=== PATIENT | female | born 1950 | race Caucasian/White ===

== ENCOUNTER → 2016-08-01 | Outpatient (CLI) | payer BC ==
[~2016-08-01] MED LIST: BIOTPOW17 PO; CALCTAB7 PO; FLNIN NAE; IMIP50TA PO; MULTTAB58 PO; SIMV20TA2 PO
== END | disposition home or self-care (01) ==
LOC: C.PAPS 14:46
PROVIDERS: ATTEND Obstetrics & Gynecology
DX: Z01.419 Encounter for gynecological examination (general) (routine) without abnormal findings (principal)

== ENCOUNTER → 2017-01-26 | Outpatient (CLI) | payer BC ==
--- NOTE | 2017-01-26 14:04 | MAMMOGRAPHY REPORT ---
BILATERAL DIGITAL SCREENING MAMMOGRAM WITH CAD: 01/26/2017 CLINICAL HISTORY: Routine screening. Patient has no complaints. TECHNIQUE: Current study was also evaluated with a Computer Aided Detection (CAD) system. Bilateral CC and MLO views were obtained. COMPARISON: Comparison is made to exams dated: 12/18/2015 mammogram, 12/16/2014 mammogram, 12/13/2013 ma mmogram, 12/06/2012 mammogram, 12/06/2011 mammogram, and 12/03/2010 mammogram - [facility] nter. BREAST COMPOSITION: The tissue of both breasts is almost entirely fatty. FINDINGS: No suspicious masses, calcifications, or areas of architectural distortion are noted in ei ther breast. There has been no significant interval change compared to prior exams. Scattered bilater al benign-appearing calcifications are not significantly changed. IMPRESSION: ACR BI-RADS CATEGORY 2: BENIGN There is no mammographic evidence of malignancy. A 1 year screening mammogram is recommended. The pa tient will receive written notification of the results. Approximately 10% of breast cancers are not detected with mammography. A negative mammographic report should not delay biopsy if a clinically suggestive mass is present. Mariaa Gross M.D. /:01/26/2017 07:50:55 Newspaper Writer: Dorinda Weiner, [facility] letter sent: Normal 1/2 BI-RADS Code: ACR BI-RADS Category 2: Benign
== END | disposition home or self-care (01) ==
LOC: C.MAMM 07:30
PROVIDERS: ATTEND Obstetrics & Gynecology
DX: Z12.31 Encounter for screening mammogram for malignant neoplasm of breast (principal)

== ENCOUNTER → 2017-02-10 | Outpatient (CLI) | payer BC ==
[2017-02-10 10:10] LABS: ALT/SGPT 32 U/L (12-78); AST/SGOT 16 U/L (15-37); BLOOD UREA NITROGEN 16 mg/dl (7-18); BUN/CREATININE RATIO 18.9 (10-20); CALCIUM 8.7 mg/dl (8.5-10.1); CARBON DIOXIDE 28 mmol/L (21-32); CHLORIDE 105 mmol/L (98-107); CREATININE 0.85 mg/dl (0.60-1.20); GLUCOSE 82 mg/dl (70-99); POTASSIUM 4.3 mmol/L (3.5-5.1); SODIUM 140 mmol/L (136-145)
[2017-02-10 10:21] LABS: CHOLESTEROL 198 mg/dl (0-200); CHOLESTEROL/HDL RATIO 2.7; HDL CHOLESTEROL 73 mg/dl; LDL CHOLESTEROL CALCULATED 105 mg/dl; TRIGLYCERIDES 100 mg/dl (0-150); VERY LOW DENSITY LIPOPROT CALC 20 mg/dl
== END | disposition home or self-care (01) ==
LOC: C.LAB1850 07:56
PROVIDERS: ATTEND Internal Medicine
DX: M81.0 Age-related osteoporosis without current pathological fracture (principal); E78.5 Hyperlipidemia, unspecified; E03.9 Hypothyroidism, unspecified; Z00.00 Encounter for general adult medical examination without abnormal findings

== ENCOUNTER → 2017-03-06 | Outpatient (CLI) | payer BC ==
--- NOTE | 2017-03-06 12:29 | DIAGNOSTIC IMAGING REPORT ---
RIBS UNILATERAL WITH PA CHEST CLINICAL HISTORY: R07.81 Rib pain on right [id number] trauma. Pain. COMPARISON STUDY: None FINDINGS: Negative chest. Negative right ribs. IMPRESSION: Negative study The above report was generated using voice recognition software. It may contain grammatical, syntax or spelling errors. Electronically signed by: Hussain Molina M.D. 03/06/2017 12:27 PM Dictated Date/Time: 03/06/2017 12:27 PM
== END | disposition home or self-care (01) ==
LOC: C.RAD1850 12:00
PROVIDERS: ATTEND Nurse Practitioner Adult Health
DX: R07.81 Pleurodynia (principal)

== ENCOUNTER → 2017-07-11 | Outpatient (CLI) | payer BC ==
[2017-07-11 09:32] LABS: BASO % 1.2 %; BASO ABS # 0.07 K/uL (0-0.2); EOS % 3.1 %; EOS ABS # 0.18 K/uL (0-0.5); HEMATOCRIT 42.8 % (37-47); HEMOGLOBIN 14.2 g/dL (12.0-16.0); IG# 0.01 K/uL (0.00-0.02); LYMPH % 26.6 %; LYMPH ABS # 1.53 K/uL (1.2-3.4); MEAN CORPUSCULAR HEMOGLOBIN 30.5 pg (25-34); MEAN CORPUSCULAR HGB CONC 33.2 g/dl (32-36); MEAN PLATELET VOLUME 9.9 fL (7.4-10.4); MONO % 12.2 %; NEUT % 56.7 %; NEUT ABS # 3.26 K/uL (1.4-6.5); PLATELET COUNT 304 K/uL (130-400); RED CELL DISTRIBUTION WIDTH CV 13.4 % (11.5-14.5); RED CELL DISTRIBUTION WIDTH SD 44.7 fL (36.4-46.3); WHITE BLOOD COUNT 5.75 K/uL (4.8-10.8)
== END | disposition home or self-care (01) ==
LOC: C.LAB1850 08:03
PROVIDERS: ATTEND Internal Medicine
DX: E78.5 Hyperlipidemia, unspecified (principal); E03.9 Hypothyroidism, unspecified

== ENCOUNTER → 2017-10-23 | Outpatient (CLI) | payer BC | END | disposition home or self-care (01) | LOC: C.PAPS 11:43 | PROVIDERS: ATTEND Obstetrics & Gynecology ==

== ENCOUNTER → 2018-01-18 | Outpatient (CLI) | payer BC | END | disposition home or self-care (01) | LOC: C.MAMM 07:59 | PROVIDERS: ATTEND Internal Medicine | DX: M85.88 Other specified disorders of bone density and structure, other site (principal); M85.851 Other specified disorders of bone density and structure, right thigh ==

== ENCOUNTER → 2018-02-02 | Outpatient (CLI) | payer BC ==
--- NOTE | 2018-02-02 15:40 | MAMMOGRAPHY REPORT ---
BILATERAL DIGITAL SCREENING MAMMOGRAM TOMOSYNTHESIS WITH CAD: 02/02/2018 CLINICAL HISTORY: Routine screening. Patient has no complaints. TECHNIQUE: The study was acquired using full field digital technology and interpreted from soft copy. Breast tomosynthesis in addition to standard 2D mammography was performed. Current study was also ev aluated with a Computer Aided Detection (CAD) system. COMPARISON: Comparison is made to exams dated: 01/26/2017 mammogram, 12/18/2015 mammogram, 12/16/2014 ma mmogram, 12/13/2013 mammogram, 12/06/2012 mammogram, and 12/06/2011 mammogram - [facility] nter. BREAST COMPOSITION: The tissue of both breasts is almost entirely fatty. FINDINGS: No suspicious masses, calcifications, or areas of architectural distortion are noted in either breast . There has been no significant interval change compared to prior exams. Scattered bilateral benign-a ppearing calcifications are not significantly changed. IMPRESSION: ACR BI-RADS CATEGORY 2: BENIGN There is no mammographic evidence of malignancy. A 1 year screening mammogram is recommended.( 019) The patient will receive written notification of the results. Some breast cancers are not detected with mammography. A negative mammographic report should not annie y biopsy if a clinically suggestive mass is present. Mariaa Gross M.D. ah/:02/02/2018 07:55:18 Ironing Machine Operator: Deepthi Alanis RT(R)(M), [facility] letter sent: Normal 1/2 BI-RADS Code: ACR BI-RADS Category 2: Benign
== END | disposition home or self-care (01) ==
LOC: C.MAMM 07:38
PROVIDERS: ATTEND Internal Medicine
DX: Z12.31 Encounter for screening mammogram for malignant neoplasm of breast (principal)

== ENCOUNTER 2023-05-01 08:20 | Observation (INO) ==
--- NOTE | 2023-03-29 10:59 | PAT Medication Instructions ---
Medication Instructions Date of Service March 29, 2023 Home Medications Medication Instructions Recorded fluticasone propionate 50 1 - 2 spray intranasal DAILY PRN 12/26/ mcg/actuation nasal nasal congestion #48 grams spray,suspension biotin 5,000 mcg sublingual tablet 5,000 mcg sublingual QAM calcium carbonate 500 mg-vitamin D3 10 mcg (400 unit) tablet (Calcium 500 + D) 2 tab PO QAM multivitamin 1 tab PO QAM cholecalciferol (vitamin D3) 25 mcg (1,000 unit) capsule 1,000 units PO QAM fluticasone propionate 50 mcg/actuation nasal spray,suspension 1 - 2 spray intranasal DAILY PRN nasal congestion escitalopram oxalate 20 mg tablet 20 mg PO HS levothyroxine 50 mcg tablet (Synthroid) 50 mcg PO QAM mupirocin 2 % topical ointment 1 applic topical DAILY PRN Skin Irritation rosuvastatin 10 mg tablet (Crestor) 10 mg PO HS STOP taking 2 weeks before surgery biotin 5,000 mcg sublingual tablet 5,000 mcg sublingual QAM STOP taking 24 hours before surgery mupirocin 2 % topical ointment 1 applic topical DAILY PRN Skin Irritation DO NOT take the morning of surgery calcium carbonate 500 mg-vitamin D3 10 mcg (400 unit) tablet (Calcium 500 + D) 2 tab PO QAM multivitamin 1 tab PO QAM cholecalciferol (vitamin D3) 25 mcg (1,000 unit) capsule 1,000 units PO QAM Take morning of surgery With a small sip of water, OTHERWISE NOTHING TO EAT OR DRINK AFTER MIDNIGHT: fluticasone propionate 50 mcg/actuation nasal spray,suspension 1 - 2 spray intranasal DAILY PRN nasal congestion (if needed) levothyroxine 50 mcg tablet (Synthroid) 50 mcg PO QAM Take evening before surgery fluticasone propionate 50 mcg/actuation nasal spray,suspension 1 - 2 spray intranasal DAILY PRN nasal congestion (if needed) escitalopram oxalate 20 mg tablet 20 mg PO HS rosuvastatin 10 mg tablet (Crestor) 10 mg PO HS Other Notes If you have any questions please call us at [phone] or [phone] or [phone] or [phone]
--- NOTE | 2023-04-03 09:01 | Anesthesiology Consultation ---
Date of Service April 03, 2023 Assessment & Plan (1) Encounter for pre-operative examination: - will await upcoming [place] PCP 04/24/23 appointment. Chart Review Chart Review: Pending: Refer to Additional Notes / Consult section and Patient seen in Pre Admission Testing Teaching & Discussion Pre-Anesthesia Teaching/Discussion Notes: Instructed NPO after midnight before surgery, except medications with 15 cc of water. Medication instructions provided according to the PAT guidelines. History Surgery Operation Date: 05/01/23 08:10 Proposed Procedures p Left Total Knee Arthroplasty - Osmany Bettencourt DO Height/Weight Height: 5 ft 9 in Weight: 109.8 kg Allergies Allergy/AdvReac Type Severity Reaction Status Date / Time No Known Allergies Allergy Verified 03/27/23 07:32 Medications Home Medications Medication Instructions Recorded Confirmed Last Taken biotin 5,000 mcg sublingual tablet 5,000 mcg sublingual QAM 01/21/19 03/27/23 01/21/19 calcium carbonate 500 mg-vitamin 2 tab PO QAM 01/21/19 03/27/23 01/21/19 D3 10 mcg (400 unit) tablet (Calcium 500 + D) multivitamin 1 tab PO QAM 01/21/19 03/27/23 01/21/19 cholecalciferol (vitamin D3) 25 1,000 units PO QAM 01/22/19 03/27/23 Unknown mcg (1,000 unit) capsule fluticasone propionate 50 1 - 2 spray intranasal DAILY PRN 12/26/22 03/27/23 Unknown mcg/actuation nasal nasal congestion #48 grams spray,suspension escitalopram oxalate 20 mg tablet 20 mg PO HS 03/27/23 03/27/23 Unknown levothyroxine 50 mcg tablet 50 mcg PO QAM 03/27/23 03/27/23 Unknown (Synthroid) mupirocin 2 % topical ointment 1 applic topical DAILY PRN Skin 03/27/23 03/27/23 Unknown Irritation rosuvastatin 10 mg tablet (Crestor) 10 mg PO HS 03/27/23 03/27/23 Unknown famotidine 10 mg tablet 10 mg PO DAILY PRN Acid Reflux 04/03/23 04/03/23 Unknown ibuprofen 200 mg tablet 200 mg PO Q6H PRN Pain 04/03/23 04/03/23 Unknown Additional Notes: Patient was advised and it was written on provided medication instruction paper that ibuprofen instructions are to surgeon's office, patient states she will check with their office. She was instructed to continue prn famotidine, this was also written on provided medication instructions. She denied questions, concerns or additional medications. Past Medical History Medical History (Updated 04/03/23 @ 09:10 by Debora English PA-C) Depression with anxiety Dyslipidemia GERD (gastroesophageal reflux disease) controlled with famotidine and diet Hx of migraines none since menopause Hypothyroidism Sleep apnea CPAP-compliant Patient denies h/o stroke, seizures, heart attack, heart failure, DM, HTN, PEs/DVTs or blood transfusions. Exercise / Class Metabolic Activity III < 4 Walking/Shop/Light housework (denies chest discomfort or shortness of breath with usual activities) Past Family History Family History Father Dementia Congestive heart failure Other Diabetes Heart disease Denies family history of Colon cancer Ovarian cancer Prostate cancer Myocardial infarction Breast cancer Colorectal cancer Past Surgical History Surgical History H/O ligation of vein H/O oral surgery Hx of colonoscopy S/P hernia repair S/P tonsillectomy and adenoidectomy Past Anesthesia History No Hx of Anesthesia Complications and Other (mother with PONV) History of PONV No Hx of PONV and No Hx of Motion Sickness (only on boat) Social History Smoking Status: Never smoker Do You Dip or Chew Tobacco: No Hx Alcohol Use: Yes Alcohol type: hard liquor alcohol intake frequency: a few times a week Hx Substance Use: No substance use type: does not use Review of Systems Patient denies chest pain, shortness of breath, dyspnea on exertion, fever, chills, cough, wheezing, or palpitations. Physical Exam Vital Signs Vitals BP 143/84 P 64 TEMP 98.2 SP02 96% on RA RESP 18 Physical Patient resting comfortably in chair in no acute distress, alert and oriented, responding appropriately throughout visit Full cervical extension range of motion without pain TMD 3.5 finger breadths Mallampati Score 2 Dentition: several crowns, denies chipped or loose teeth, implants or bridges Lungs: normal respiratory effort. Good air movement, clear throughout to auscultation, no adventitious breath sounds Cardiac: regular rate and rhythm, no murmurs noted Carotid arteries: negative bruit bilat Lab Results Anesthesia Preop Results Results Anesthesia Widget: WBC 4.98 K/ul (4.8-10.8) 04/03/23 Hgb 13.6 g/dl (12.0-16.0) 04/03/23 Hct 41.7 % (37.0-47.0) 04/03/23 Plt 295 K/uL (130-400) 04/03/23 Na 139 mmol/L (136-145) 04/03/23 K 4.2 mmol/L (3.5-5.1) 04/03/23 Cl 105 mmol/L (98-107) 04/03/23 CO2 27 mmol/L (21-32) 04/03/23 BUN 15 mg/dl (6-23) 04/03/23 Creat 0.80 mg/dl (0.6-1.2) 04/03/23 Glucose Level 97 mg/dl (70-99(Fasting)) 04/03/23 PT 10.6 Seconds (9.0-12.0) 04/03/23 PTT 31.4 Seconds (21.0-31.0) H 04/03/23 INR 1.0 (0.9-1.1) 04/03/23 TSH 1.951 uIu/ml (0.300-4.500) 04/03/23 HA1c 5.5 % (4.5-5.6) 04/03/23 Blood Type A Positive 04/03/23 Antibody Screen NEGATIVE 04/03/23 Testing Electrocardiogram Date: 04/03/23 NSR, rate 61 bpm Chest X-Ray Date: 04/03/23 No acute cardiopulmonary findings Stress Test Date: 04/19/19 Negative exercise stress echo and ECG for ischemia at MPHR 110% METS 7 Premature supraventricular beats and runs of nonsustained supraventricular tachycardia in the early recovery phase EF 60% Mild cLVH Normal LV wall motion No significant valvular pathology
--- NOTE | 2023-04-27 06:22 | History & Physical Report ---
Date of Service April 27, 2023 History of Present Illness Chief Complaint: Osteoarthritis of the left knee. Primary Care Provider: Brandon Mcdaniels MD Sultana is a pleasant 72-year-old female who has been dealing with chronically increasing bilateral knee pain. Her left has been worse than her right. I tried injections. She tried exercise and physical therapy. She is trying anti- inflammatories without relief. Unfortunately, she is still really struggling with the knee. Her left is worse than her right. X-rays and clinical examination been diagnostic for advanced osteoarthritis of the left knee. After failed conservative treatment, she has elected to proceed with a left total knee arthroplasty. Allergies Allergy/AdvReac Type Severity Reaction Status Date / Time No Known Allergies Allergy Verified 04/21/23 09:21 Home Medications Medication Instructions Recorded Confirmed Type biotin 5,000 mcg sublingual tablet 5,000 mcg sublingual QAM 01/21/19 04/21/23 History calcium carbonate 500 mg-vitamin 2 tab PO QAM 01/21/19 04/21/23 History D3 10 mcg (400 unit) tablet (Calcium 500 + D) multivitamin 1 tab PO QAM 01/21/19 04/21/23 History cholecalciferol (vitamin D3) 25 1,000 units PO QAM 01/22/19 04/21/23 History mcg (1,000 unit) capsule fluticasone propionate 50 1 - 2 spray intranasal DAILY PRN 12/26/22 04/21/23 Rx mcg/actuation nasal nasal congestion #48 grams spray,suspension escitalopram oxalate 20 mg tablet 20 mg PO HS 03/27/23 04/21/23 History levothyroxine 50 mcg tablet 50 mcg PO QAM 03/27/23 04/21/23 History (Synthroid) mupirocin 2 % topical ointment 1 applic topical DAILY PRN Skin 03/27/23 04/21/23 History Irritation rosuvastatin 10 mg tablet (Crestor) 10 mg PO HS 03/27/23 04/21/23 History famotidine 10 mg tablet 10 mg PO DAILY PRN Acid Reflux 04/03/23 04/21/23 History ibuprofen 200 mg tablet 200 mg PO Q6H PRN Pain 04/03/23 04/21/23 History Past Med/Surg History Medical History (Updated 04/03/23 @ 09:10 by Debora English PA-C) GERD (gastroesophageal reflux disease) controlled with famotidine and diet Hx of migraines none since menopause Sleep apnea CPAP-compliant Depression with anxiety Dyslipidemia Hypothyroidism Surgical History Hx of colonoscopy H/O ligation of vein S/P tonsillectomy and adenoidectomy H/O oral surgery S/P hernia repair Family History Father Dementia Congestive heart failure Other Diabetes Heart disease Denies family history of Colon cancer Ovarian cancer Prostate cancer Myocardial infarction Breast cancer Colorectal cancer Social History Smoking Status: Never smoker Second Hand Exposure: Yes (hx in college); Do You Dip or Chew Tobacco: No; Hx Alcohol Use: Yes Alcohol type: hard liquor Hx Substance Use: No Preferred Language: Marshallese Communication Ability: Effective Visual Impairment: No Limitations Hearing Ability: Normal Clothing Designer Required: No Beliefs That Will Affect Care: None marital status: Current Living Situation: Significant Other current occupational status: employed Feels Safe at Home: Yes Seatbelt Use: always Assistive Devices: CPAP and Glasses Review of Systems All systems reviewed & are unremarkable except as noted in HPI & below. Physical Exam . Results & Data Results & Data Laboratory Results . Diagnostic Findings . PG Care Time/CCT Total # of Minutes Spent Total Time Spent with Patient: Total time spent is greater than 50% in coordination of care (as documented) at patient's floor/unit and/or counseling patient: Coding Level of Care Code None
--- NOTE | 2023-04-27 06:30 | History & Physical Report ---
Date of Service April 27, 2023 Assessment & Plan (1) Osteoarthritis of left knee: We will proceed with a left total knee arthroplasty. Postoperatively she will be started on aspirin for DVT prophylaxis and kept overnight in the hospital for postop medical management. She plans to use energy physical therapy upon discharge. History of Present Illness Chief Complaint: Osteoarthritis of the left knee. Primary Care Provider: Brandon Mcdaniels MD Sultana is a pleasant 72-year-old female who has been dealing with chronically increasing bilateral knee pain. Her left has been worse than her right. I tried injections. She tried exercise and physical therapy. She is trying anti- inflammatories without relief. Unfortunately, she is still really struggling with the knee. Her left is worse than her right. X-rays and clinical examination been diagnostic for advanced osteoarthritis of the left knee. After failed conservative treatment, she has elected to proceed with a left total knee arthroplasty. . Allergies Allergy/AdvReac Type Severity Reaction Status Date / Time No Known Allergies Allergy Verified 04/21/23 09:21 Home Medications Medication Instructions Recorded Confirmed Type biotin 5,000 mcg sublingual tablet 5,000 mcg sublingual QAM 01/21/19 04/21/23 History calcium carbonate 500 mg-vitamin 2 tab PO QAM 01/21/19 04/21/23 History D3 10 mcg (400 unit) tablet (Calcium 500 + D) multivitamin 1 tab PO QAM 01/21/19 04/21/23 History cholecalciferol (vitamin D3) 25 1,000 units PO QAM 01/22/19 04/21/23 History mcg (1,000 unit) capsule fluticasone propionate 50 1 - 2 spray intranasal DAILY PRN 12/26/22 04/21/23 Rx mcg/actuation nasal nasal congestion #48 grams spray,suspension escitalopram oxalate 20 mg tablet 20 mg PO HS 03/27/23 04/21/23 History levothyroxine 50 mcg tablet 50 mcg PO QAM 03/27/23 04/21/23 History (Synthroid) mupirocin 2 % topical ointment 1 applic topical DAILY PRN Skin 03/27/23 04/21/23 History Irritation rosuvastatin 10 mg tablet (Crestor) 10 mg PO HS 03/27/23 04/21/23 History famotidine 10 mg tablet 10 mg PO DAILY PRN Acid Reflux 04/03/23 04/21/23 History ibuprofen 200 mg tablet 200 mg PO Q6H PRN Pain 04/03/23 04/21/23 History Past Med/Surg History Medical History GERD (gastroesophageal reflux disease) controlled with famotidine and diet Hx of migraines none since menopause Sleep apnea CPAP-compliant Depression with anxiety Dyslipidemia Hypothyroidism Surgical History Hx of colonoscopy H/O ligation of vein S/P tonsillectomy and adenoidectomy H/O oral surgery S/P hernia repair Family History Father Dementia Congestive heart failure Other Diabetes Heart disease Denies family history of Colon cancer Ovarian cancer Prostate cancer Myocardial infarction Breast cancer Colorectal cancer Social History Smoking Status: Never smoker Second Hand Exposure: Yes (hx in college); Do You Dip or Chew Tobacco: No; Hx Alcohol Use: Yes Alcohol type: hard liquor Hx Substance Use: No Preferred Language: Cuban Communication Ability: Effective Visual Impairment: No Limitations Hearing Ability: Normal Professional Tutor Required: No Beliefs That Will Affect Care: None marital status: Current Living Situation: Significant Other current occupational status: employed Feels Safe at Home: Yes Seatbelt Use: always Assistive Devices: CPAP and Glasses Review of Systems All systems reviewed & are unremarkable except as noted in HPI & below. Physical Exam On physical examination of left knee, she is slight valgus deformity. She is tenderness palpation over the distal lateral joint line and over the lateral femoral condyle.. Constitutional WD/WN, vitals as above Eyes PERRL, conjunctivae normal, anicteric sclerae ENMT external ear and nose normal, oropharynx normal Neck trachea midline, no thyromegaly Respiratory normal respiratory effort Cardiovascular RRR, no murmur, no edema Gastrointestinal (Abdomen) normal bowel sounds, soft, nontender, no hepatosplenomegaly Psychiatric A+Ox3, euthymic affect Results & Data Results & Data Laboratory Results . Diagnostic Findings X-rays of the left knee show advanced osteoarthritis with joint space narrowing osteophyte formation and [id number] articulation.. PG Care Time/CCT Total # of Minutes Spent Total Time Spent with Patient: Total time spent is greater than 50% in coordination of care (as documented) at patient's floor/unit and/or counseling patient: Coding Level of Care Code None Diagnoses Osteoarthritis of left knee M17.12
[~2023-05-01 08:20] MED LIST changes: +ACETAMINOPHEN 500 MG TAB PO SCH; -BIOTPOW17 PO; +BUPIVACAINE 0.5 % 5 MG/1 ML PF 10ML VIAL ONE; -CALCTAB7 PO; +FAMOTIDINE 20 MG TAB PO SCH; -FLNIN NAE; +GABAPENTIN 300 MG CAP PO SCH; -IMIP50TA PO; +LR 500ML BOLUS, THEN 15ML/HR IV SCH; +LR 60ML/HR IV SCH; -MULTTAB58 PO; +ORTHO JOINT MIX INFIL SCH; +ROPIVACAINE 0.5% 5 MG/ML 30 ML VIAL ONE; -SIMV20TA2 PO; +TRANEXAMIC ACID 1,000 MG **IV Intra-op IV SCH; +TRANEXAMIC ACID 1,000 MG **IV Pre-op IV SCH; +ceFAZolin 2000MG 2,000 MG/15 ML SYR IV SCH; +dexAMETHasone 4 MG TAB PO SCH
[2023-05-01] MEDS ORDERED: PROPOFOL IV EMULSION 10 MG/ML 20 ML VIAL IV ONE ×3 (08:54→11:13)
[2023-05-01] MEDS ORDERED: ONDANSETRON INJ 2 MG/ML 2 ML VIAL ONE (08:54)
[2023-05-01] MEDS ORDERED: fentaNYL citrate PF 100 MCG/2 ML VIAL ONE (08:55)
[2023-05-01] MEDS ORDERED: MIDAZOLAM HCL 1 MG/ML 2ML VIAL ONE (08:55)
[2023-05-01] MEDS ORDERED: ATROPINE SULFATE 0.1 MG/ML 10ML SYR IV PRN (09:31)
[2023-05-01] MEDS ORDERED: PROMETHAZINE HCL 12.5 MG in SODIUM CHLORIDE 0.9% 50 ML IV PRN (09:31)
[2023-05-01] MEDS ORDERED: fentaNYL citrate PF 100 MCG/2 ML VIAL IV PRN (09:31)
[2023-05-01] MEDS ORDERED: ePHEDrine sulfate 50 MG/ML AMP IV PRN (09:31)
[2023-05-01] MEDS ORDERED: ORTHO JOINT ANESTHETIC ONE (09:46)
--- NOTE | 2023-05-01 10:08 | History & Physical Bridge Note ---
Date of Service May 01, 2023 History & Physical Bridge Note I have examined the patient, reviewed the History & Physical and in the interval since the performance of the History & Physical I have noted the following changes of clinical significance: no changes noted
--- NOTE | 2023-05-01 11:32 | Operative Report ---
PG Post Operative Report Pre & Post Diagnosis Operation Date: 05/01/23 09:55 Pre-Op Diagnosis: Left Knee Degenerative Joint Disease Post-Op Diagnosis: Left Knee Degenerative Joint Disease I identified the patient and participated in the time-out.: Yes Procedure Operation Date: 05/01/23 09:55 Actual Procedures p Left Total Knee Arthroplasty(Left) - Osmany Bettencourt DO Surgeon Osmany Bettencourt DO Automobile Tester Osmany Antonio PA-C Estimated Blood Loss 30 Findings Consistent with Post-Op Diagnosis Specimens Left femoral and tibial bone Description of Procedure Implants used: I used a [employer] Person[employer] total knee arthroplasty system with a size 10 standard femur, F tibia, 34 oval patella, and a size 12 CPS polyethylene bearing. All components were cemented in place with Biomet cement. Sultana arrived [facility] for the above procedure. She was seen in the preoperative holding area and the operative extremity was identified and signed. She was given a preoperative antibiotic, TXA, a spinal anesthetic and an adductor nerve block. She was taken back to the operating room and laid on the table in supine position. She was given basic sedation. The operative knee was then prepped and draped in sterile fashion. A timeout was done, and the patient and the operative extremity was properly identified. A midline incision was made directly over the patella. Dissection was taken down to the extensor mechanism. A midvastus arthrotomy was used. The medial retinaculum was released and the fat pad was mostly excised. The knee was flexed and the ACL, PCL, and meniscus were removed. A drill was sent down the center of the femoral canal followed by an intramedullary charlene. Off that charlene a distal femoral cutting block was placed. 9 mm was resected off the distal femur at 5 of valgus. A posterior referencing AP sizing guide was then placed on the distal femur. The femur measured to be a size 10. 2 drill holes were placed in 3 of external rotation. A 4-in-1 cutting block was then impacted into place. Anterior, posterior, and chamfer cuts were then made. The proximal tibia was then exposed. An external tibial alignment guide was placed. A tibial cut guide was then anchored in place and the proximal tibia was then resected. The posterior aspect of the knee was then opened up and any additional meniscus fragments and osteophytes were removed. The tibia measured to be a size F. The tibial plate was then placed in the appropriate rotation and the tibia was drilled and punched. Trial components were then placed. I used a size 12 CPS polyethylene insert. The knee was brought through a full range of motion and felt to be stable. The peg holes for the femoral component were then drilled. The patella was then everted and 9 mm was resected off the posterior aspect of the patella. The patella measured to be a size 34 oval. 3 peg holes were then drilled. A trial patella was placed. The knee was once again brought through a full range of motion and felt to be stable. Trial components were then removed. The surrounding soft tissues were injected with 100 cc of an orthopedic pain control cocktail. All components were then cemented into place with Biomet cement. The final polyethylene insert was then snapped into place. Once cement was dry the tourniquet was deflated. Hemostasis was obtained. A dilute betadyne lavage was then done for 3 minutes. The joint was then irrigated with normal saline solution. The midvastus arthrotomy was then closed with #1 Vicryl suture. The skin was closed with 2-0 Vicryl, 3-0V lock suture, and flo. A soft compressive dressing was placed. She was then transferred to a hospital bed and taken to the postanesthesia care unit in stable condition. She tolerated the procedure well. Osmany Antonio PA-C, was present for the entire procedure. He was critical for patient positioning, prepping, draping, retraction exposure, wound closure and application of sterile dressing. I attest to the content of the Intraoperative Record and any orders documented therein. Any exceptions are noted below.
--- NOTE | 2023-05-01 12:50 | Anesthesiology Progress Note ---
Date of Service May 01, 2023 Anesthesia Post Procedure Vital Signs Vital Signs: Temp Pulse Pulse Resp BP Pulse Ox O2 Del Method 05/01/23 12:40 60 16 122/64 95 Nasal Cannula 05/01/23 12:30 65 16 126/66 96 Nasal Cannula 05/01/23 12:20 61 13 118/63 95 Nasal Cannula 05/01/23 12:10 64 12 111/66 96 Oxymask 05/01/23 12:00 69 14 104/66 97 Oxymask 05/01/23 11:52 36.6 C 77 15 106/63 96 Oxymask 05/01/23 08:49 36.8 C 71 20 93/58 L 95 Room Air O2 Flow Rate 05/01/23 12:40 2 05/01/23 12:30 2 05/01/23 12:20 2 05/01/23 12:10 2 05/01/23 12:00 2 05/01/23 11:52 4 05/01/23 08:49 Notes Mental Status: alert / awake / arousable Patient Amnestic to Procedure: Yes Nausea / Vomiting: adequately controlled Pain: adequately controlled Airway Patency, RR, SpO2: stable & adequate BP & HR: stable & adequate Hydration State: stable & adequate Neuraxial Anesthesia: was administered and sensory block is resolving Anesthetic Complications: no major complications apparent
--- NOTE | 2023-05-01 14:01 | XRay Report ---
XR knee LT 1 or 2V routine CLINICAL HISTORY: Postoperative evaluation. COMPARISON: Left knee radiographs November 23, 2022. FINDINGS: Alignment of the total left knee arthroplasty is anatomic. There is no periprosthetic frac ture or unexpected radiopaque foreign body. There are skin flo. IMPRESSION: Expected findings following total left knee arthroplasty. ACT 112: Negative or not required by law. Electronically signed by: Rosalio Sandhu M.D. 05/01/2023 2:00 PM
[2023-05-01] MEDS ORDERED: HYDROmorphone INJ 0.5 MG/0.5 ML SYR IV PRN (14:07)
[2023-05-01] MEDS ORDERED: oxyCODONE HCL IR 5 MG TAB (IMMEDIATE RELEASE) PO PRN (14:07)
[2023-05-01] MEDS ORDERED: bisacodyL 10 MG SUPP PR PRN (14:07)
[2023-05-01] MEDS ORDERED: FAMOTIDINE 10 MG TABLET PO PRN (14:07)
[2023-05-01] MEDS ORDERED: MAGNESIUM HYDROXIDE SUSP 30 ML UDC PO PRN (14:07)
[2023-05-01] MEDS ORDERED: MUPIROCIN 2% OINT 22 GM TUBE TOP PRN (14:07)
[2023-05-01] MEDS ORDERED: ONDANSETRON INJ 2 MG/ML 2 ML VIAL IV PRN (14:07)
[2023-05-01] MEDS ORDERED: NALOXONE HCL 0.4 MG/1 ML VIAL/CARP IV PRN (14:07)
[2023-05-01] MEDS ORDERED: METOCLOPRAMIDE HCL INJ 5 MG/ML 2 ML VIAL IV PRN (14:07)
[2023-05-01] MEDS: ACETAMINOPHEN 500 MG TAB PO SCH (16:32)
[2023-05-01] MEDS: KETOROLAC TROMETHAMINE 15 MG/ML VIAL IV SCH ×2 (16:33→20:18)
[2023-05-01] MEDS: SODIUM CHLORIDE 0.9% 1,000 ML IV SCH (16:35)
[2023-05-01] MEDS: ceFAZolin 2000MG 2,000 MG/15 ML SYR IV SCH (18:24)
[2023-05-01] MEDS: DOCUSATE SODIUM 100 MG CAP PO SCH (20:18)
[2023-05-01] MEDS: ASPIRIN 81 MG ECTAB PO SCH (20:18)
[2023-05-01] MEDS ORDERED: ESCITALOPRAM OXALATE 20 MG TAB PO SCH (21:00)
[2023-05-01] MEDS ORDERED: ROSUVASTATIN CALCIUM 10 MG TAB PO SCH (21:00)
[2023-05-01] MEDS ORDERED: SENNA 8.6 MG TAB PO SCH (21:00)
[2023-05-02] MEDS: SODIUM CHLORIDE 0.9% 1,000 ML IV SCH (02:23)
[2023-05-02] MEDS: ACETAMINOPHEN 500 MG TAB PO SCH ×2 (02:28→08:02)
[2023-05-02] MEDS: ceFAZolin 2000MG 2,000 MG/15 ML SYR IV SCH (02:28)
[2023-05-02] MEDS: KETOROLAC TROMETHAMINE 15 MG/ML VIAL IV SCH ×2 (02:29→07:58)
[2023-05-02] MEDS ORDERED: LEVOTHYROXINE SODIUM 50 MCG TABLET PO SCH (06:30)
--- NOTE | 2023-05-02 07:06 | Orthopedic Progress Note ---
Date of Service May 02, 2023 Assessment & Plan (1) Status post left knee replacement: Overall she is doing very well. She is now having much pain in the left knee. She will be seen by physical therapy today for ambulation and range of motion exercises. She is on aspirin for DVT prophylaxis. She can be discharged home later today. She will follow-up with orthopedics in 2 weeks. Subjective Sultana was seen and examined at bedside this morning. Overall she is doing very well. She is not having much pain in the left knee. She has been up and ambulating to the bathroom. She has no complaints.. Review of Systems All systems reviewed & are unremarkable except as noted in HPI & below. Physical Exam On physical examination of left knee, the dressing is clean and dry. Her leg is out full extension. She has active dorsiflexion plantarflexion of her left ankle.. Results & Data Results & Data Laboratory Results . Diagnostic Findings Postoperative x-rays of the left knee show the prosthesis to be in anatomic alignment without any evidence of fracture complication, or loosening.. PG Care Time/CCT Total # of Minutes Spent Total Time Spent with Patient: Total time spent is greater than 50% in coordination of care (as documented) at patient's floor/unit and/or counseling patient: Coding Level of Care Code 13217 Post Operative Follow-Up Diagnoses Status post left knee replacement Z96.652
--- NOTE | 2023-05-02 07:07 | Discharge Summary ---
Date of Service May 02, 2023 Admission HPI (Per Admitting) Sultana is a pleasant 72-year-old female who has been dealing with chronically increasing bilateral knee pain. Her left has been worse than her right. I tried injections. She tried exercise and physical therapy. She is trying anti- inflammatories without relief. Unfortunately, she is still really struggling with the knee. Her left is worse than her right. X-rays and clinical examination been diagnostic for advanced osteoarthritis of the left knee. After failed conservative treatment, she has elected to proceed with a left total knee arthroplasty. . Admission Exam (Per Admitting) On physical examination of left knee, she is slight valgus deformity. She is tenderness palpation over the distal lateral joint line and over the lateral femoral condyle.. Principal Diagnosis Same as "Discharge Diagnosis" noted below under Discharge Instructions. Discharge Exam On physical examination of left knee, the dressing is clean and dry. Her leg is out full extension. She has active dorsiflexion plantarflexion of her left ankle.. Discharge Data Procedures Performed Operation Date: 05/01/23 09:55 Actual Procedures p Left Total Knee Arthroplasty(Left) - Osmany Bettencourt DO Ordered Studies 05/01/23 05:00 US - OR guided needle placemen Routine Hospital Course (1) Status post left knee replacement: On May 01, 2023 Sultana arrived at [facility] and underwent a left knee replacement without complication. She had a spinal anesthetic. Postoperatively she was started on aspirin for DVT prophylaxis and transferred to the general orthopedic floors. Her hospital course was uneventful. On postop day #1, her vital signs were stable and her pain was well controlled. She was able to participate well with physical therapy doing ambulation and range of motion exercises. She was then discharged home. She will follow-up with orthopedics in 2 weeks. PG Care Time/CCT Total # of Minutes Spent Total Time Spent with Patient: Total time spent is greater than 50% in coordination of care (as documented) at patient's floor/unit and/or counseling patient: Discharge Plan Discharge Items Patient Disposition: Home - Home Health Services Reason For Visit: Left Knee DJD Discharge Diagnosis: Left knee replacement Activity: Per Instructions section Non-emergency contact: Surgeon Call non-emergency contact if: your wound has increased redness and your wound has increased drainage Follow-up/Referrals: ProBrandon MD [Primary Care Provider] - Diet: Regular Addtl Attending Provider Instructions: Activity and Therapy Recommendations: * If you are using [facility] then therapy will be provided at your home until they feel you have accomplished all of your goals. * If you are using [facility] then Physical Therapy will be provided until they feel you are ready to start Outpatient Physical Therapy. * If you are not using home therapy then Outpatient Physical Therapy should start about 3-5 days from your day of surgery. Therapy will last about 6-10 weeks * It is important not to put a pillow under your knee when you are relaxing or sleeping. It is just as important to make sure you are getting your knee perfectly straight as it is to regain your knee bend. * You were shown a series of exercises in the hospital. Do these exercises three times each day including the exercises you were shown in physical therapy. * Get up and walk several times each day. For the first four weeks, try not to stand or walk for more than one hour at a time. If you do stand or walk for more than one hour, you will not hurt anything, but your leg will likely swell. * As you feel comfortable, you may change from the walker or crutches to a cane and then to independent walking. Medications: * Narcotic You will likely be sent home from the hospital with a prescription for the narcotic pain medication that worked best throughout your stay. * Aspirin Most patients will be required to take Aspirin 81mg twice a day for 6 weeks after surgery. This is obtained [id number] and a prescription is not necessary. * Cefadroxil -take the antibiotic twice a day for 10 days to help prevent infections. * Other medications may be prescribed for specific circumstances. If you have any questions, please call the office at . * Resume previous home medications unless otherwise instructed TEDs/Elastic Stockings: The white elastic stockings help limit swelling and prevent blood clots from forming in your legs.~ The more you wear them, the more they work. Wear them for six weeks. Dressing Care: The dressing can be changed after physical therapy on postop day #1. Daily dry dressing changes for a few days, especially if the incision is still draining some. If the incision is not draining then you may leave the flo open to air. If there is a little bit of drainage or if the flo are getting stuck on your clothing then cover the incision with a dry dressing. The flo will be removed at your 2 week follow-up appointment. Showering: You may shower 5 days from the day of surgery as long as the incision is no longer draining. You may shower with the flo exposed. Let soapy water run over the flo and pat them dry. Do not scrub or soak the incision. Things To Watch For: * Drainage from the incision site that occurs more than one week after your surgery. * Increased redness at the incision site. * Fever above 102 degrees Fahrenheit. * Unusual chest pain or shortness of breath. * Call [facility] at with any of the above problems Follow-Up Visit: Follow-up with Dr. Bettencourt's PA (Osmany Antonio) 2-3 weeks after your day of surgery. He will remove your flo and answer any questions. If you have any additional questions or concerns, Dr Bettencourt is usually in the office at the same time and will be available An appointment was probably scheduled when you signed-up for surgery in the office. If you have any questions call Office Instructions: More detailed instructions as well as Frequently Asked Questions were provided in a folder by our office when you signed-up for surgery. Please review these instructions when you get home. If you have any further questions or concerns, please feel free to call the office at [phone] Pending Studies at Discharge: No Stand-Alone Forms: My [facility] Medications and DC Order Prescriptions: New oxycodone 5 mg Tablet 5 mg PO Q4H PRN (Reason: pain) Qty: 30 0RF cefadroxil 500 mg capsule 500 mg PO BID 10 Days Qty: 20 0RF aspirin 81 mg Tablet,Delayed Release (Dr/Ec) 81 mg PO BID 42 Days Qty: 0 0RF Continued fluticasone propionate 50 mcg/actuation spray,suspension 1 - 2 spray INTNAS DAILY PRN (Reason: nasal congestion) Qty: 48 3RF cholecalciferol (vitamin D3) 1,000 unit capsule 1,000 units PO QAM multivitamin Tablet 1 tab PO QAM calcium carbonate-vitamin D3 [Calcium 500 + D] 500 mg(1,250mg) -400 unit Tablet 2 tab PO QAM biotin 5,000 mcg Tablet, Sublingual 5,000 mcg sublingual QAM levothyroxine [Synthroid] 50 mcg tablet 50 mcg PO QAM mupirocin 2 % ointment 1 applic topical DAILY PRN (Reason: Skin Irritation) Rx Instructions: to nose escitalopram oxalate 20 mg tablet 20 mg PO HS rosuvastatin [Crestor] 10 mg tablet 10 mg PO HS ibuprofen 200 mg Tablet 200 mg PO Q6H PRN (Reason: Pain) famotidine 10 mg Tablet 10 mg PO DAILY PRN (Reason: Acid Reflux) Admission Data Admit Date/Time: 05/01/23 11:56 Attending Provider: Osmany Bettencourt Admit Provider: Osmany Bettencourt Primary Care Provider: Brandon Mcdaniels
[2023-05-02] MEDS: ASPIRIN 81 MG ECTAB PO SCH (08:00)
[2023-05-02] MEDS ORDERED: dexAMETHasone 4 MG TAB PO SCH (08:00)
[2023-05-02] MEDS: DOCUSATE SODIUM 100 MG CAP PO SCH (08:01)
[2023-05-02] MEDS ORDERED: MULTIVITAMIN TAB PO SCH (09:00)
== END 2023-05-02 11:00 | disposition home health service (06) ==
LOC: PACUINP 08:20 → ASU 08:20 → 3N 15:28

== ENCOUNTER 2023-10-30 08:08 | Observation (INO) ==
--- NOTE | 2023-09-26 13:02 | PAT Medication Instructions ---
Medication Instructions Date of Service September 26, 2023 Home Medications Medication Instructions Recorded fluticasone propionate 50 1 - 2 spray intranasal DAILY PRN 12/26/ mcg/actuation nasal nasal congestion #48 grams spray,suspension biotin 5,000 mcg sublingual tablet 5,000 mcg sublingual QAM calcium carbonate 500 mg-vitamin D3 10 mcg (400 unit) tablet (Calcium 500 + D) 2 tab PO QAM multivitamin 1 tab PO QAM cholecalciferol (vitamin D3) 25 mcg (1,000 unit) capsule 1,000 units PO QAM fluticasone propionate 50 mcg/actuation nasal spray,suspension 1 - 2 spray intranasal DAILY PRN nasal congestion escitalopram oxalate 20 mg tablet 20 mg PO HS levothyroxine 50 mcg tablet (Synthroid) 50 mcg PO QAM mupirocin 2 % topical ointment 1 applic topical DAILY PRN Skin Irritation rosuvastatin 10 mg tablet (Crestor) 10 mg PO HS famotidine 10 mg tablet 10 mg PO DAILY PRN Acid Reflux ibuprofen 200 mg tablet 200 mg PO Q6H PRN Pain ASK your surgeon for instructions ibuprofen 200 mg tablet 200 mg PO Q6H PRN Pain STOP taking 2 weeks before surgery biotin 5,000 mcg sublingual tablet 5,000 mcg sublingual QAM STOP taking 24 hours before surgery mupirocin 2 % topical ointment 1 applic topical DAILY PRN Skin Irritation DO NOT take the morning of surgery calcium carbonate 500 mg-vitamin D3 10 mcg (400 unit) tablet (Calcium 500 + D) 2 tab PO QAM multivitamin 1 tab PO QAM cholecalciferol (vitamin D3) 25 mcg (1,000 unit) capsule 1,000 units PO QAM Take morning of surgery With a small sip of water, OTHERWISE NOTHING TO EAT OR DRINK AFTER MIDNIGHT: fluticasone propionate 50 mcg/actuation nasal spray,suspension 1 - 2 spray intranasal DAILY PRN nasal congestion (if needed) levothyroxine 50 mcg tablet (Synthroid) 50 mcg PO QAM famotidine 10 mg tablet 10 mg PO DAILY PRN Acid Reflux (if needed) Take evening before surgery fluticasone propionate 50 mcg/actuation nasal spray,suspension 1 - 2 spray intranasal DAILY PRN nasal congestion (if needed) escitalopram oxalate 20 mg tablet 20 mg PO HS rosuvastatin 10 mg tablet (Crestor) 10 mg PO HS famotidine 10 mg tablet 10 mg PO DAILY PRN Acid Reflux (if needed) Other Notes If you have any questions please call us at [phone] or [phone] or [phone] or [phone]
--- NOTE | 2023-10-03 10:46 | Anesthesiology Consultation ---
Date of Service October 03, 2023 Assessment & Plan (1) Encounter for pre-operative examination: - Infectious disease screening: Per assessment on 10/03/23: No known infectious disease contacts or current infectious disease symptoms. No noted recent Covid positive test result. - Outpatient joint assessment: Pt currently scheduled for inpatient pathway. If surgeon requests review for outpatient joint pathway, patient is an acceptable candidate for outpatient joint program from anesthesia standpoint pending surgeon's office assessment that patient is motivated, has good support and completes Same Day Joint Program preop requirements. - S/P Left TKA (05/01/23): SAB + regional at [facility] Chart Review Chart Review: Acceptable Risk for Surgery and Patient seen in Pre Admission Testing Teaching & Discussion Pre-Anesthesia Teaching/Discussion Notes: Instructed NPO after midnight before surgery,except medications with 15 cc of water. Medication instructions provided according to the PAT guidelines. History Surgery Operation Date: 10/30/23 07:00 Proposed Procedures p Right Total Knee Arthroplasty - Osmany Bettencourt, Height/Weight Height: 5 ft 9 in Weight: 113 kg Allergies Allergy/AdvReac Type Severity Reaction Status Date / Time No Known Allergies Allergy Verified 09/18/23 15:32 Medications Home Medications Medication Instructions Recorded Confirmed Last Taken biotin 5,000 mcg sublingual tablet 5,000 mcg sublingual QAM 01/21/19 09/18/23 01/21/19 calcium carbonate 500 mg-vitamin 2 tab PO QAM 01/21/19 09/18/23 04/30/23 12:00 D3 10 mcg (400 unit) tablet (Calcium 500 + D) multivitamin 1 tab PO QAM 01/21/19 09/18/23 04/30/23 10:00 cholecalciferol (vitamin D3) 25 1,000 units PO QAM 01/22/19 09/18/23 04/30/23 10:00 mcg (1,000 unit) capsule fluticasone propionate 50 1 - 2 spray intranasal DAILY PRN 12/26/22 09/18/23 Unknown mcg/actuation nasal nasal congestion #48 grams spray,suspension escitalopram oxalate 20 mg tablet 20 mg PO HS 03/27/23 09/18/23 04/30/23 20:00 levothyroxine 50 mcg tablet 50 mcg PO QAM 03/27/23 09/18/23 04/30/23 06:30 (Synthroid) mupirocin 2 % topical ointment 1 applic topical DAILY PRN Skin 03/27/23 09/18/23 Unknown Irritation rosuvastatin 10 mg tablet (Crestor) 10 mg PO HS 03/27/23 09/18/23 04/30/23 20:00 famotidine 10 mg tablet 10 mg PO DAILY PRN Acid Reflux 04/03/23 09/18/23 04/22/23 17:00 ibuprofen 200 mg tablet 200 mg PO Q6H PRN Pain 04/03/23 09/18/23 Unknown Past Medical History Medical History Depression with anxiety Dyslipidemia GERD (gastroesophageal reflux disease) "Controlled" Hx of migraines Hx (prior to menopause) Hypothyroidism Osteoarthritis of right knee Sleep apnea CPAP (compliant) Exercise / Class Metabolic Activity II 4-5 Yardwork/Stairs/Walk up hill (one FS: No CP, no SOB) Past Family History Family History Father Congestive heart failure Dementia Mother Family history of reaction to anesthesia nausea/vomiting Other Diabetes Heart disease Denies family history of Colon cancer Ovarian cancer Prostate cancer Myocardial infarction Breast cancer Colorectal cancer Past Surgical History Surgical History H/O ligation of vein H/O oral surgery Hx of colonoscopy S/P hernia repair S/P tonsillectomy and adenoidectomy Status post left knee replacement Left TKA (05/01/23): SAB + regional at [facility] Past Anesthesia History No Hx of Anesthesia Complications and No Family Hx of Anesthesia Complications (except mother- extreme postop nausea) History of PONV No Hx of PONV and Hx of Motion Sickness (Boats) Social History Smoking Status: Never smoker Do You Dip or Chew Tobacco: No Hx Alcohol Use: Yes Alcohol type: hard liquor alcohol intake frequency: a few times a week Hx Substance Use: No substance use type: does not use Review of Systems Patient denies chest pain, shortness of breath, dyspnea on exertion, fever, chills, cough, wheezing, palpitations. Physical Exam Vital Signs BP 117/75 P 64 TEMP 97.9 SP02 96%RA RESP 18 Physical Full cervical extension range of motion. Full TMJ range of motion. TMD > 3.5 finger breaths Mallampati Score 1 Dentition: intact, + crowns Lungs: clear throughout to auscultation Cardiac: regular rate and rhythm, no murmurs noted Spine: normal Carotid arteries: negative bruit Extremities: no LE edema Lab Results Anesthesia Preop Results Results Anesthesia Widget: WBC 7.06 K/ul (4.8-10.8) 10/03/23 Hgb 13.7 g/dl (12.0-16.0) 10/03/23 Hct 42.9 % (37.0-47.0) 10/03/23 Plt 289 K/uL (130-400) 10/03/23 Na 139 mmol/L (136-145) 10/03/23 K 4.7 mmol/L (3.5-5.1) 10/03/23 Cl 105 mmol/L (98-107) 10/03/23 CO2 26 mmol/L (21-32) 10/03/23 BUN 15 mg/dl (6-23) 10/03/23 Creat 0.84 mg/dl (0.6-1.2) 10/03/23 Glucose Level 101 mg/dl (70-99(Fasting)) H 10/03/23 PT 10.6 Seconds (9.0-12.0) 10/03/23 PTT 33 Seconds (21-31) H 10/03/23 INR 1.0 (0.9-1.1) 10/03/23 TSH 1.711 uIu/ml (0.300-4.500) 10/03/23 HA1c 5.7 % (4.5-5.6) H 10/03/23 Blood Type A Positive 10/03/23 Antibody Screen NEGATIVE 10/03/23 Testing Electrocardiogram Date: 04/03/23 NSR, rate 61 bpm Chest X-Ray Date: 04/03/23 No acute cardiopulmonary findings Stress Test Date: 04/19/19 Negative exercise stress echo and ECG for ischemia at MPHR 110% METS 7 Premature supraventricular beats and runs of nonsustained supraventricular tachycardia in the early recovery phase EF 60% Mild cLVH Normal LV wall motion No significant valvular pathology
[~2023-10-30 08:08] MED LIST changes: -ACETAMINOPHEN 500 MG TAB PO SCH; -FAMOTIDINE 20 MG TAB PO SCH; -GABAPENTIN 300 MG CAP PO SCH; -LR 500ML BOLUS, THEN 15ML/HR IV SCH; -LR 60ML/HR IV SCH; -ORTHO JOINT MIX INFIL SCH; -TRANEXAMIC ACID 1,000 MG **IV Intra-op IV SCH; -TRANEXAMIC ACID 1,000 MG **IV Pre-op IV SCH; -ceFAZolin 2000MG 2,000 MG/15 ML SYR IV SCH; -dexAMETHasone 4 MG TAB PO SCH
[2023-10-30] MEDS ORDERED: MIDAZOLAM HCL 1 MG/ML 2ML VIAL ONE ×2 (08:19→09:58)
[2023-10-30] MEDS ORDERED: fentaNYL citrate PF 100 MCG/2 ML VIAL ONE (08:19)
[2023-10-30] MEDS: LR 500ML BOLUS, THEN 15ML/HR IV SCH (09:09)
[2023-10-30] MEDS: ACETAMINOPHEN 500 MG TAB PO SCH ×2 (09:10→14:00)
[2023-10-30] MEDS: LR 60ML/HR IV SCH (09:10)
[2023-10-30] MEDS: dexAMETHasone**PF** 10 MG/ML VIAL IV SCH (09:11)
[2023-10-30] MEDS: FAMOTIDINE 20 MG TAB PO SCH (09:11)
[2023-10-30] MEDS: GABAPENTIN 300 MG CAP PO SCH (09:11)
[2023-10-30] MEDS ORDERED: ePHEDrine sulfate 50 MG/ML AMP IV PRN (09:32)
[2023-10-30] MEDS ORDERED: fentaNYL citrate PF 100 MCG/2 ML VIAL IV PRN (09:32)
[2023-10-30] MEDS ORDERED: ATROPINE SULFATE 0.1 MG/ML 10ML SYR IV PRN (09:32)
[2023-10-30] MEDS ORDERED: ONDANSETRON INJ 2 MG/ML 2 ML VIAL IV PRN ×2 (09:32→12:53)
[2023-10-30] MEDS: TRANEXAMIC ACID 1,000 MG **IV Pre-op IV SCH (09:34)
--- NOTE | 2023-10-30 09:43 | History & Physical Bridge Note ---
Date of Service October 30, 2023 History & Physical Bridge Note I have examined the patient, reviewed the History & Physical and in the interval since the performance of the History & Physical I have noted the following changes of clinical significance: no changes noted
[2023-10-30] MEDS: ceFAZolin 2000MG 2,000 MG/15 ML SYR IV SCH ×2 (09:53→18:04)
[2023-10-30] MEDS ORDERED: PROPOFOL IV EMULSION 10 MG/ML 20 ML VIAL IV ONE ×2 (10:08→10:51)
[2023-10-30] MEDS ORDERED: ONDANSETRON INJ 2 MG/ML 2 ML VIAL ONE (10:08)
[2023-10-30] MEDS: ORTHO JOINT ANESTHETIC ONE (10:20)
[2023-10-30] MEDS: ROPIV 0.5% 246mg, Ketorolac 30mg, EPINEPHrine 0.5mg in NSS INFIL SCH (10:20)
[2023-10-30] MEDS: TRANEXAMIC ACID 1,000 MG **IV Intra-op IV SCH (10:48)
--- NOTE | 2023-10-30 11:01 | Operative Report ---
PG Post Operative Report Pre & Post Diagnosis Operation Date: 10/30/23 10:00 Pre-Op Diagnosis: Right Knee Degenerative Joint Disease Post-Op Diagnosis: Right Knee Degenerative Joint Disease I identified the patient and participated in the time-out.: Yes Procedure Operation Date: 10/30/23 10:00 Actual Procedures p Right Total Knee Arthroplasty(Right) - Osmany Bettencorut DO Surgeon Osmany Bettencourt DO Beef Cattle Farmer Osmany Bonds PA-C Estimated Blood Loss 30 Findings Consistent with Post-Op Diagnosis Specimens Right femoral and tibial bone Description of Procedure Implants used: I used a [employer] Person[employer] total knee arthroplasty system with a size 11 PS narrow femur, F tibia, 34 oval patella, and a size 12 CPS polyethylene bearing. All components were cemented in place with Biomet cement. Sultana arrived [facility] for the above procedure. She was seen in the preoperative holding area and the operative extremity was identified and signed. She was given a preoperative antibiotic, TXA, a spinal anesthetic and an adductor nerve block. She was taken back to the operating room and laid on the table in supine position. She was given basic sedation. The operative knee was then prepped and draped in sterile fashion. A timeout was done, and the patient and the operative extremity was properly identified. A midline incision was made directly over the patella. Dissection was taken down to the extensor mechanism. A midvastus arthrotomy was used. The medial retinaculum was released and the fat pad was mostly excised. The knee was flexed and the ACL, PCL, and meniscus were removed. A drill was sent down the center of the femoral canal followed by an intramedullary charlene. Off that charlene a distal femoral cutting block was placed. 9 mm was resected off the distal femur at 5 of valgus. A posterior referencing AP sizing guide was then placed on the distal femur. The femur measured to be a size 11. 2 drill holes were placed in 3 of external rotation. A 4-in-1 cutting block was then impacted into place. Anterior, posterior, and chamfer cuts were then made. The proximal tibia was then exposed. An external tibial alignment guide was placed. A tibial cut guide was then anchored in place and the proximal tibia was then resected. The posterior aspect of the knee was then opened up and any additional meniscus fragments and osteophytes were removed. The tibia measured to be a size F.. The tibial plate was then placed in the appropriate rotation and the tibia was drilled and punched. Trial components were then placed. I used a size 12 CPS polyethylene insert. The knee was brought through a full range of motion and felt to be stable. The peg holes for the femoral component were then drilled. The patella was then everted and 9 mm was resected off the posterior aspect of the patella. The patella measured to be a size 34 oval. 3 peg holes were then drilled. A trial patella was placed. The knee was once again brought through a full range of motion and felt to be stable. Trial components were then removed. The surrounding soft tissues were injected with 100 cc of an orthopedic pain control cocktail. All components were then cemented into place with Biomet cement. The final polyethylene insert was then snapped into place. Once cement was dry the tourniquet was deflated. Hemostasis was obtained. A dilute betadyne lavage was then done for 3 minutes. The joint was then irrigated with normal saline solution. The midvastus arthrotomy was then closed with #1 Vicryl suture. The skin was closed with 2-0 Vicryl, 3-0V lock suture, and flo. A soft compressive dressing was placed. She was then transferred to a hospital bed and taken to the postanesthesia care unit in stable condition. She tolerated the procedure well. Osmany Antonio PA-C, was present for the entire procedure. He was critical for patient positioning, prepping, draping, retraction exposure, wound closure and application of sterile dressing. I attest to the content of the Intraoperative Record and any orders documented therein. Any exceptions are noted below.
--- NOTE | 2023-10-30 12:01 | Anesthesiology Progress Note ---
Date of Service October 30, 2023 Anesthesia Post Procedure Vital Signs Vital Signs: Temp Pulse Resp BP BP Pulse Ox O2 Del Method 10/30/23 11:50 36.5 C 57 L 12 120/73 93 Room Air 10/30/23 11:40 64 19 128/61 93 Room Air 10/30/23 11:30 71 16 120/65 94 Room Air 10/30/23 11:20 36.4 C L 74 14 118/60 95 Oxymask 10/30/23 08:50 36.6 C 18 149/62 H 100 Room Air O2 Flow Rate 10/30/23 11:50 10/30/23 11:40 10/30/23 11:30 10/30/23 11:20 4 10/30/23 08:50 Notes Mental Status: alert / awake / arousable Patient Amnestic to Procedure: Yes Nausea / Vomiting: adequately controlled Pain: adequately controlled Airway Patency, RR, SpO2: stable & adequate BP & HR: stable & adequate Hydration State: stable & adequate Neuraxial Anesthesia: was administered and sensory block is resolving Anesthetic Complications: no major complications apparent
--- NOTE | 2023-10-30 12:05 | XRay Report ---
XR knee RT 1 or 2V routine HISTORY: 73 years-old Female Surgical Post Op right knee arthroplasty COMPARISON: 04/29/2012 TECHNIQUE: 2 views of the right knee FINDINGS: Total joint arthroplasty with patellar resurfacing. Anterior midline skin flo with expected posto perative soft tissue swelling and deep tissue air. No acute fracture, dislocation or unexpected opaqu e foreign body. IMPRESSION: Total joint arthroplasty and patellar resurfacing with expected postoperative changes. ACT 112: Negative or not required by law. The above report was generated using voice recognition software. It may contain grammatical, syntax o r spelling errors. Electronically signed by: Estuardo Eagle M.D. 10/30/2023 12:02 PM
[2023-10-30] MEDS ORDERED: MAGNESIUM HYDROXIDE SUSP 30 ML UDC PO PRN (12:53)
[2023-10-30] MEDS ORDERED: NALOXONE HCL 0.4 MG/1 ML VIAL/CARP IV PRN (12:53)
[2023-10-30] MEDS ORDERED: oxyCODONE HCL IR 5 MG TAB (IMMEDIATE RELEASE) PO PRN (12:53)
[2023-10-30] MEDS ORDERED: MUPIROCIN 2% OINT 22 GM TUBE TOP PRN (12:53)
[2023-10-30] MEDS ORDERED: FAMOTIDINE 10 MG TABLET PO PRN (12:53)
[2023-10-30] MEDS ORDERED: METOCLOPRAMIDE HCL INJ 5 MG/ML 2 ML VIAL IV PRN (12:53)
[2023-10-30] MEDS ORDERED: bisacodyL 10 MG SUPP PR PRN (12:53)
[2023-10-30] MEDS ORDERED: HYDROmorphone INJ 0.5 MG/0.5 ML SYR IV PRN (12:53)
[2023-10-30] MEDS: SODIUM CHLORIDE 0.9% 1,000 ML IV SCH (13:10)
[2023-10-30] MEDS: KETOROLAC TROMETHAMINE 15 MG/ML VIAL IV SCH (14:00)
[2023-10-30] MEDS: SENNA 8.6 MG TAB PO SCH (20:33)
[2023-10-30] MEDS: DOCUSATE SODIUM 100 MG CAP PO SCH (20:33)
[2023-10-30] MEDS: ESCITALOPRAM OXALATE 20 MG TAB PO SCH (20:33)
[2023-10-30] MEDS: ROSUVASTATIN CALCIUM 10 MG TAB PO SCH (20:34)
[2023-10-30] MEDS: ASPIRIN 81 MG ECTAB PO SCH (20:34)
[2023-10-31] MEDS: LEVOTHYROXINE SODIUM 50 MCG TABLET PO SCH (05:50)
--- NOTE | 2023-10-31 06:50 | Orthopedic Progress Note ---
Date of Service October 31, 2023 Assessment & Plan (1) Status post right knee replacement: Overall she is doing very well. She is not having much pain in the right knee. She will be seen by physical therapy today for ambulation and range of motion exercises. The nursing staff can change her dressing after physical therapy. She is on aspirin for DVT prophylaxis. She can be discharged home later today. She will follow-up with orthopedics in 2 weeks. Maylin Weinberg was seen and examined at bedside this morning. Overall she is doing fairly well. She is not having much pain in the right knee. She has been up and ambulating into the hallways. She has no complaints.. Review of Systems All systems reviewed & are unremarkable except as noted in HPI & below. Physical Exam On physical examination of the right knee, the dressing is clean and dry. Her leg is out full extension. She has active dorsiflexion plantarflexion of her right ankle.. Results & Data Results & Data Laboratory Results . Diagnostic Findings Postoperative x-rays of the right knee show the prosthesis to be in anatomic alignment without any evidence of fracture, dislocation, or loosening.. PG Care Time/CCT Total # of Minutes Spent Total Time Spent with Patient: Total time spent is greater than 50% in coordination of care (as documented) at patient's floor/unit and/or counseling patient: Coding Level of Care Code 96533 Post Operative Follow-Up Diagnoses Status post right knee replacement Z96.651
--- NOTE | 2023-10-31 06:51 | Discharge Summary ---
Date of Service October 31, 2023 Principal Diagnosis Same as "Discharge Diagnosis" noted below under Discharge Instructions. Discharge Exam On physical examination of the right knee, the dressing is clean and dry. Her leg is out full extension. She has active dorsiflexion plantarflexion of her right ankle.. Discharge Data Procedures Performed Operation Date: 10/30/23 10:00 Actual Procedures p Right Total Knee Arthroplasty(Right) - sOmany Btetencourt DO Ordered Studies 10/30/23 05:00 US - OR guided needle placemen Routine Hospital Course (1) Status post right knee replacement: On October 30, 2023 Sultana arrived at [facility] and underwent a right knee replacement without complication. She had a spinal anesthetic. Postoperatively she was started on aspirin for DVT prophylaxis and transferred to the general orthopedic floors. Her hospital course was uneventful. On postop day #1, her vital signs were stable and her pain was well-controlled. She was able to participate well with physical therapy doing ambulation and range of motion exercises. She was then discharged home. She will follow-up with orthopedics in 2 weeks. PG Care Time/CCT Total # of Minutes Spent Total Time Spent with Patient: Total time spent is greater than 50% in coordination of care (as documented) at patient's floor/unit and/or counseling patient: Discharge Plan Discharge Items Patient Disposition: Home - Self-Care Reason For Visit: Right Knee Degenerative Joint Disease Discharge Diagnosis: Right knee replacement Activity: Per Instructions section Non-emergency contact: Surgeon Call non-emergency contact if: your wound has increased redness and your wound has increased drainage Follow-up/Referrals: Pro,Brandon Gomez MD [Primary Care Provider] - Diet: Regular Addtl Attending Provider Instructions: Activity and Therapy Recommendations: * If you are using [facility] then therapy will be provided at your home until they feel you have accomplished all of your goals. * If you are using [facility] then Physical Therapy will be provided until they feel you are ready to start Outpatient Physical Therapy. * If you are not using home therapy then Outpatient Physical Therapy should start about 3-5 days from your day of surgery. Therapy will last about 6-10 weeks * It is important not to put a pillow under your knee when you are relaxing or sleeping. It is just as important to make sure you are getting your knee perfectly straight as it is to regain your knee bend. * You were shown a series of exercises in the hospital. Do these exercises three times each day including the exercises you were shown in physical therapy. * Get up and walk several times each day. For the first four weeks, try not to stand or walk for more than one hour at a time. If you do stand or walk for more than one hour, you will not hurt anything, but your leg will likely swell. * As you feel comfortable, you may change from the walker or crutches to a cane and then to independent walking. Medications: * Narcotic You will likely be sent home from the hospital with a prescription for the narcotic pain medication that worked best throughout your stay. * Cefadroxil -take the antibiotic twice a day for 10 days to help with infection. * Aspirin Most patients will be required to take Aspirin 81mg twice a day for 6 weeks after surgery. This is obtained [id number] and a prescription is not necessary. * Other medications may be prescribed for specific circumstances. If you have any questions, please call the office at . * Resume previous home medications unless otherwise instructed TEDs/Elastic Stockings: The white elastic stockings help limit swelling and prevent blood clots from forming in your legs.~ The more you wear them, the more they work. Wear them for six weeks. Dressing Care: The dressing can be changed after physical therapy on postop day #1. Daily dry dressing changes for a few days, especially if the incision is still draining some. If the incision is not draining then you may leave the flo open to air. If there is a little bit of drainage or if the flo are getting stuck on your clothing then cover the incision with a dry dressing. The flo will be removed at your 2 week follow-up appointment. Showering: You may shower 5 days from the day of surgery as long as the incision is no longer draining. You may shower with the flo exposed. Let soapy water run over the flo and pat them dry. Do not scrub or soak the incision. Things To Watch For: * Drainage from the incision site that occurs more than one week after your surgery. * Increased redness at the incision site. * Fever above 102 degrees Fahrenheit. * Unusual chest pain or shortness of breath. * Call [facility] at with any of the above problems Follow-Up Visit: Follow-up with Dr. Bettencourt's PA (Osmany Antonio) 2-3 weeks after your day of surgery. He will remove your flo and answer any questions. If you have any additional questions or concerns, Dr Bettencourt is usually in the office at the same time and will be available An appointment was probably scheduled when you signed-up for surgery in the office. If you have any questions call Office Instructions: More detailed instructions as well as Frequently Asked Questions were provided in a folder by our office when you signed-up for surgery. Please review these instructions when you get home. If you have any further questions or concerns, please feel free to call the office at [phone] Pending Studies at Discharge: No Stand-Alone Forms: My [facility] [employer], Smoking Cessation Medications and DC Order Prescriptions: New oxycodone 5 mg Tablet 5 mg PO Q4H PRN (Reason: pain) Qty: 30 0RF cefadroxil 500 mg capsule 500 mg PO BID 10 Days Qty: 20 0RF aspirin 81 mg Tablet,Delayed Release (Dr/Ec) 81 mg PO BID 42 Days Qty: 0 0RF Continued cholecalciferol (vitamin D3) 1,000 unit capsule 1,000 units PO QAM fluticasone propionate 50 mcg/actuation spray,suspension 1 - 2 spray INTNAS DAILY PRN (Reason: nasal congestion) Qty: 48 3RF multivitamin Tablet 1 tab PO QAM calcium carbonate-vitamin D3 [Calcium 500 + D] 500 mg(1,250mg) -400 unit Tablet 2 tab PO QAM biotin 5,000 mcg Tablet, Sublingual 5,000 mcg sublingual QAM levothyroxine [Synthroid] 50 mcg tablet 50 mcg PO QAM mupirocin 2 % ointment 1 applic topical DAILY PRN (Reason: Skin Irritation) Rx Instructions: to nose escitalopram oxalate 20 mg tablet 20 mg PO HS rosuvastatin [Crestor] 10 mg tablet 10 mg PO HS ibuprofen 200 mg Tablet 200 mg PO Q6H PRN (Reason: Pain) famotidine 10 mg Tablet 10 mg PO DAILY PRN (Reason: Acid Reflux) Discharge Orders: Discharge Order (Routine); Ordered 10/31/23 Ordered By: Osmany Bettencourt Admission Data Admit Date/Time: 10/30/23 11:35 Attending Provider: Osmany Bettencourt Admit Provider: Osmany Bettencourt Primary Care Provider: Brandon Mcdaniels
[2023-10-31] MEDS: MULTIVITAMIN TAB PO SCH (08:06)
[2023-10-31] MEDS: dexAMETHasone 4 MG TAB PO SCH (08:06)
== END 2023-10-31 10:31 | disposition home or self-care (01) ==
LOC: ASU 08:08 → 3E 08:08